=== PATIENT | female | born 1935 | race Caucasian/White ===

== ENCOUNTER 2018-01-22 10:54 | Day surgery (SDC) | payer OTHER, MEDICARE ==
[2018-01-21 08:00] VITALS: BMI 29.9
[2018-01-22] MEDS ORDERED: PROPOFOL 20 ML ONE ×4 (11:45)
[2018-01-22] MEDS ORDERED: MIDAZOLAM HCL 2 MG/2 ML SINGLE DOSE VIAL ONE (11:46)
--- NOTE | 2018-01-22 12:03 | HP ---
[facility] - Chief Complaint Chief Complaint: left hand tendon rupture - Past Medical History Allergies/Adverse Reactions: Allergies Allergy/AdvReac Type Severity Reaction Status Date / Time No Known Allergies Allergy Verified 01/22/18 11:45 - Current Medications Current Medications: Home Medications Medication Instructions Recorded Atorvastatin Ca [Lipitor] 10 mg PO HS 10/21/12 Ergocalciferol (Vitamin D2) 400 unit PO DAILY 10/21/12 [Vitamin D] Aspirin Coated [Ecotrin -] 81 mg PO DAILY 10/22/12 Losartan/Hydrochlorothiazide 50 each PO DAILY 10/22/12 [Losartan-Hctz 50-12.5 mg Tab] Mv,Ca,Iron,Min/FA/Phytosterol 1 each PO DAILY 10/22/12 [Centrum Cardio Tablet] Calcium Carb, Citrate/Vit D3 1 each PO DAILY 01/21/18 [Citracal + D ER Tablet] Celecoxib [Celebrex] 200 mg PO DAILY 01/21/18 Hydrocodone/Acetaminophen [Otwell 1 each PO Q6H PRN #40 tablet MDD 4 01/22/18 5-325 Tablet] Omeprazole Magnesium [Prilosec Otc] 20 mg PO DAILY 01/22/18 [facility] Physical Exam - Physical Examination Vital Signs: Vital Signs Period Temp Pulse Resp BP Sys/Todd Pulse Ox Last 24 Hr 98.2 F 73 18 138/68 98 General Appearance: Well Nourished, Well Developed, Alert & Oriented x3 ENT: Clear Lung: Normal air movement Heart: Regular rate & rhythm Extremities: Other (left hand- + swelling, + ttp, unable to actively extend 4th and 5th fingers, nvi) Neurological: Intact, Alert, Oriented [facility] Impression/Plan - Impression/Plan Impression: left 4th and 5th extensor tendon rupture Operative Procedure: left 4th and 5th extensor tendon repair Date to be Performed: 01/22/18
[2018-01-22] MEDS ORDERED: BUPIVACAINE HCL/PF 0.5% (5MG/ML) 10 ML VIAL ONE (12:14)
[2018-01-22] MEDS ORDERED: LIDOCAINE HCL 1%, 10 MG/ML (20ML VIAL) ONE (12:14)
[2018-01-22] MEDS ORDERED: ceFAZolin SODIUM 1 GM VIAL IVPB ONE (12:50)
[2018-01-22] MEDS ORDERED: LIDOCAINE HCL 1%, 10 MG/ML (20ML VIAL) NR ONE (12:57)
[2018-01-22] MEDS ORDERED: BUPIVACAINE HCL/PF (5 MG/ML) 30 ML VIAL IJ ONE (12:57)
[2018-01-22] MEDS ORDERED: ePHEDrine SULFATE 50 MG/1 ML AMPULE ONE (13:12)
[2018-01-22] MEDS ORDERED: DESFLURANE GAS 240 ML BOTTLE IH ONE (13:20)
[2018-01-22] MEDS ORDERED: ONDANSETRON 4 MG/2 ML VIAL IVPUSH PRN (13:35)
[2018-01-22] MEDS ORDERED: oxyCODONE HCL 5 MG TABLET PO PRN (13:35)
[2018-01-22] MEDS ORDERED: LACTATED RINGERS SOLUTION 1,000 ML IV SCH (13:45)
--- NOTE | 2018-01-22 14:03 | OP ---
Operative Note - Note: Operative Date: 01/22/18 ([facility]) Pre-Operative Diagnosis: left hand 4th and 5th extensor tendon rupture Operation: left hand 4th and 5th extensor tendon repair, tenosynovectomy Post-Operative Diagnosis: Same as Pre-op Surgeon: Vega Glass Maintenance Groundman: Chapin Montelongo Anesthesiologist/ELECTRIC WELDER: Alex Washington Anesthesia: Local, MAC Specimens Removed: tenosynovium Estimated Blood Loss (mls): 0 (tourniquet) Operative Report Dictated: Yes
[2018-01-22 17:57] VITALS: BP 127/69; PULSE 86; TEMP 97.9
--- NOTE | 2018-01-22 19:51 | OP ---
DATE OF OPERATION: DATE OF DICTATION: 01/22/2018 PREOPERATIVE DIAGNOSIS: Spontaneous rupture, left hand, fourth and fifth extensor tendons, tenosynovitis. POSTOPERATIVE DIAGNOSIS: Spontaneous rupture, left hand, fourth and fifth extensor tendons, tenosynovitis. PROCEDURE: Open repair of left hand fourth and fifth extensor tendons and tenosynovectomy. SURGEON: Tai Hernandez M.D. SEAMLESS TUBE DRAWER: Fito Lua NURSE CENTER CONSULTANT: Alex Washington CRNA ANESTHESIA: LMA anesthesia, local injection of 10 mL 0.5% Marcaine, 1% lidocaine mix. DRAINS: None. COMPLICATIONS: None. SPECIMEN: Tenosynovium left hand. FLUID REPLACEMENT: 500 mL. 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 After understanding the potential risks, complications, alternatives, benefits to surgery versus nonsurgical treatment, the patient elected to undergo this procedure. DESCRIPTION OF PROCEDURE: Patient brought to operating room, peripheral IV placed, IV sedation given, 1 g of IV Ancef was given, LMA anesthesia was induced. Left upper extremity was prepped and draped in a sterile fashion, elevated, exsanguinated with an Esmarch bandage. Tourniquet inflated to 250 mmHg. A longitudinal V-shaped incision was marked out with a marking pen, and 10 mL 0.5% Marcaine and 1% lidocaine mix was injected around the surgical incision. The incision was made with a number 15 scalpel blade. Subcutaneous hemostasis was achieved today by electrocautery. Throughout the entire case, great care was taken to preserve all crossing neurovascular structures. There was some inflammatory tenosynovitis exterior to the dorsal extensor retinaculum. Clearly there was more inferior volar and internal to it. A fresh number 15 scalpel was utilized to cut open the 5th extensor tendon sheath. I was able to find the distal stump. I pulled on it, and it clearly extended the 5th finger. I put a marking suture in it. I put a 2-0 silk suture in the skin flap to gently hold that in a radial direction. I then tried to find the proximal stump of the 5th extensor tendon. There was definitely inflammatory tissue within the extensor tendon sheath. This was excised with a number 15 scalpel blade and a rongeur, passed off the field as specimen. I opened the dorsal aspect of the 5th finger extensor tendon sheath in an effort to find the proximal stump, and I was unable to do so, going back as far as the wrist crease, and I was able to reach with a Mosquito past the ulnar head. Next I did the same process for the 4th extensor tendon. Here I was usually able to find the distal stump, but this tore off the ulnar aspect of the larger third extensor tendon. It was not a juncture, it was the main tendon. There was inflammatory tissue in this area, which was also excised. This was within the extensor tendon sheath. There was no proximal stump. There was a large volume of extensor tenosynovitis which was under the extensor retinaculum, which was then opened and excised. It was all passed off the field as specimen together. The area was copiously irrigated and washed out. I did not see any other abnormal extensor tenosynovitis. There was a mass on the dorsal aspect of the wrist, and this was explored and seemed to be normal subcutaneous fat. Next, I put the fingers into extension, all with the same tension and with a slight bend in the MP joint and sutured the large stump of the 4th extensor tendon to its point of origin from the 3rd extensor tendon with 2-0 Vicryl sutures. I then had to open up the distal 5th extensor tendon sheath in order to transpose it for a side to side repair, which was done with 2-0 Vicryl sutures. I then tested the repair, it looked quite good. There was a good extension of the fingers with wrist flexion. I was able to pull on it, extend all 3 fingers. Next I put in several 4-0 undyed Vicryl supplemental sutures. The area was irrigated and washed out. Closure done with 4-0 undyed Vicryl in the deep dermal layer. Final skin reapproximation was done with 2 separate running subcuticular 4-0 Biosyn sutures. The area was then washed and dried and covered with Steri-Strips, 4x4s, fluffs between the fingers, Webril, and a 4-inch Ortho-Glass volar splint was applied on the volar aspect to prevent flexion of the fingers and therefore prevent tension on the repair. It was wrapped with Drea and Coban. Total tourniquet time was about 55 minutes. There were no complications during the case. The patient tolerated the procedure quite well and was brought to the ambulatory recovery. The procedure was open repair, left 4th and 5th extensor tendons, and tenosynovectomy. TAI HERNANDEZ M.D. [id number]
--- NOTE | 2018-01-27 08:56 | PATH ---
Surgical Pathology Report Patient Name: GALLO PEREZ [facility]. Rec. #: [id number] /Age/Gender: 1935 (Age: 82) / F Account: [id number] Location: [facility] SURGICAL Taken: 01/22/2018 Received: 01/23/2018 Reported: 01/27/2018 Physicians: Vega Glass M.D. 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 COMMENT: THE FINDINGS OF CHRONIC SYNOVITIS ARE NONSPECIFIC. CORRELATE WITH OTHER CLINICAL DATA IS RECOMMENDED. Electronically Signed Bobby Clark M.D. Gross Description Received in formalin labeled "tissue left hand," is a 3.0 x 2.1 x 0.3 cm aggregate of kapoor soft tissue fragments. A reimbursement representative portion is submitted in one cassette. /01/23/201801/23/2018
== END 2018-01-22 16:45 | disposition home or self-care (01) ==
LOC: JASU-SURG 10:54
PROVIDERS: ATTEND Orthopaedic Surgery
PROC: 0LQ80ZZ Repair Left Hand Tendon, Open Approach (ICD-10-PCS; 2018-01-22)
PROC: 0LB80ZZ Excision of Left Hand Tendon, Open Approach (ICD-10-PCS; 2018-01-22)
PROC: 0LQ80ZZ Repair Left Hand Tendon, Open Approach (ICD-10-PCS; principal; 2018-01-22 12:30)
DX: M66.242 Spontaneous rupture of extensor tendons, left hand (principal); M65.842 Other synovitis and tenosynovitis, left hand
CPT/HCPCS: 88304-TC